=== PATIENT | female | born 2000 | race Hispanic/Latino ===

== ENCOUNTER 2023-08-19 19:14 | Emergency (ER) | payer OTHER ==
[~2023-08-19] VITALS: Ht 152.4 cm; Wt 45.4 kg
[2023-08-19 19:16] VITALS: BP 112/60; PULSE 112; RESP 18
[2023-08-19] MEDS: ACETAMINOPHEN 500 MG TABLET PO ONE (19:22)
[2023-08-19] MEDS: ONDANSETRON ODT 4MG TAB SL ONE (19:22)
[2023-08-19 19:36] LABS: ADD UA MICROSCOPIC YES; APPEARANCE,URINE CLOUDY (CLEAR); BILIRUBIN,URINE NEGATIVE (NEGATIVE); COLOR,URINE YELLOW (YELLOW); GLUCOSE, URINE (UA) NEGATIVE (NEGATIVE); KETONES,URINE NEGATIVE (NEGATIVE); LEUKOCYTE ESTERASE ,URINE 500 Leu/uL (NEGATIVE); NITRATE,URINE NEGATIVE (NEGATIVE); OCCULT BLOOD,URINE MODERATE (NEGATIVE); PH,URINE 6.5 (5.0-8.0); PROTEIN,URINE 30 mg/dL (NEGATIVE); UROBILINOGEN,URINE 12 mg/dL (0.2-1.0)
[2023-08-19 19:39] LABS: HCG,QUALITATIVE URINE NEGATIVE (NEGATIVE)
[2023-08-19 19:40] LABS: BACTERIA,URINE FEW /HPF (None Seen); SQUAMOUS EPITHELIAL CELL,UR RARE /HPF (0-2); WBC,URINE 26-50 /HPF (0-1); YEAST,URINE BUDDING RARE /HPF (None Seen)
[2023-08-19] MEDS ORDERED: ONDA-243 PO (19:49)
[2023-08-19] MEDS ORDERED: NITR100C4 PO (19:49)
[2023-08-19 19:59] VITALS: TEMP 100.1
[2023-08-19] MEDS: CEFTRIAXONE 1G VIAL IM ONE (20:04)
== END 2023-08-19 20:18 | disposition home or self-care (01) ==
LOC: EDH 19:14
DX: N39.0 Urinary tract infection, site not specified (principal); R11.2 Nausea with vomiting, unspecified
CPT/HCPCS: 99283; 87077; 87088; 87186; 81001; 81025; 96372; J0696